=== PATIENT | male | born 1955 | race Caucasian/White ===

== ENCOUNTER 2016-06-07 12:31 | Emergency (ER) | payer OTHER, MEDICARE, BC ==
[~2016-06-07 12:31] MED LIST: ALTACE 5MG5 MG PO; ASPIR LOW81 MG PO; CLONAZEPAM0.5 M1 PO; GOOD NEIGHBOR325 MG PO; PLAVIX 75MG TAB75 MG PO; SERTRALINE100 MG PO; SIMVASTATIN20 MG PO; TEGRETOL XR200 MG PO; ZYRTEC ALLERGY10 MG PO
[2016-06-07] MEDS ORDERED: PREDNISONE10 MG PO (15:07)
[2016-06-07 15:15] VITALS: BP 154/89
== END 2016-06-07 15:15 | disposition home or self-care (01) ==
LOC: ED 12:31
DX: T78.40XA Allergy, unspecified, initial encounter (principal); L50.9 Urticaria, unspecified; R21 Rash and other nonspecific skin eruption
CPT/HCPCS: J2930

== ENCOUNTER → 2017-04-30 | Day surgery (SDC) | payer OTHER, MEDICARE, BC ==
[~2017-04-30] MED LIST changes: +PREDNISONE10 MG PO
== END ==
LOC: MSO 07:23
DX: Z12.11 Encounter for screening for malignant neoplasm of colon (principal); K57.30 Diverticulosis of large intestine without perforation or abscess without bleeding; I10 Essential (primary) hypertension; I25.2 Old myocardial infarction; Z87.891 Personal history of nicotine dependence; K21.9 Gastro-esophageal reflux disease without esophagitis; Z86.73 Personal history of transient ischemic attack (TIA), and cerebral infarction without residual deficits; Z86.12 Personal history of poliomyelitis; Z88.6 Allergy status to analgesic agent; Z88.0 Allergy status to penicillin; Z88.8 Allergy status to other drugs, medicaments and biological substances; Z95.5 Presence of coronary angioplasty implant and graft; F32.9 Major depressive disorder, single episode, unspecified; Z79.82 Long term (current) use of aspirin; Z79.02 Long term (current) use of antithrombotics/antiplatelets; G40.89 Other seizures
CPT/HCPCS: 00810; J2704; J3010; J7120

== ENCOUNTER → 2019-10-31 | Outpatient (CLI) | payer MEDICARE, BC | LOC: RAD 08:41 | DX: J43.9 Emphysema, unspecified (principal); J94.1 Fibrothorax | CPT/HCPCS: Q9967 ==

== ENCOUNTER → 2019-11-25 | Outpatient (CLI) | payer MEDICARE, BC | LOC: RAD 09:42 | DX: R22.0 Localized swelling, mass and lump, head (principal); Z98.890 Other specified postprocedural states | CPT/HCPCS: Q9967 ==

== ENCOUNTER 2022-06-21 08:00 | Outpatient (RCR) | payer MEDICARE, BC | END 2022-07-18 | disposition home or self-care (01) | LOC: CARDREHAB | DX: Z48.812 Encounter for surgical aftercare following surgery on the circulatory system (principal); Z95.5 Presence of coronary angioplasty implant and graft; I25.2 Old myocardial infarction ==